=== PATIENT | male | born 1990 | race African-American/Black ===

== ENCOUNTER 2017-08-24 19:04 | Emergency (ER) | payer OTHER ==
[~2017-08-24] VITALS: Ht 180.3 cm; Wt 125.2 kg
[~2017-08-24 19:04] MED LIST: CLARITIN-D 121 EACH PO
== END 2017-08-25 02:41 | disposition home or self-care (01) ==
LOC: ER 19:04
DX: J32.8 Other chronic sinusitis (principal)

== ENCOUNTER → 2018-02-07 | Emergency (ER) | payer OTHER ==
[~2018-02-07] VITALS: Ht 180.3 cm; Wt 127.9 kg
== END | disposition home or self-care (01) ==
LOC: ER 21:06
DX: J32.8 Other chronic sinusitis (principal)